=== PATIENT | male | born 1990 | race Caucasian/White ===

== ENCOUNTER 2016-12-21 20:17 | Emergency (ER) | payer BC, OTHER ==
[2016-12-21 20:29] VITALS: BP 151/79; PULSE 98; TEMP 98.5; BMI 26.6
--- NOTE | 2016-12-21 21:25 | PDOC ---
History of Present Illness - History of Present Illness Initial Comments: 12/21/16 21:26 26 y/o M with no PMHx presents to the ED with an abscess on his right ear for two days. Patient reports associated pain at the site. He does not wear earrings. He has no other complaints. Denies fever, chills. PAST MEDICAL HISTORY: no significant history PAST SURGICAL HISTORY: no significant history FAMILY HISTORY: no pertinent history SOCIAL HISTORY: Pt lives with family and is employed. MEDICATIONS: reviewed ALLERGIES: As per nursing notes Review of Systems: General: No fevers or chills, no weakness, no weight loss HEENT: (+) right ear abscess and pain. No change in vision. No sore throat. CardioVascular: No chest pain or shortness of breath Respiratory: No cough, or wheezing. Gastrointestinal: no nausea, vomiting, diarrhea or constipation, No rectal bleeding Genitourinary: No dysuria, hematuria, or frequency Musculoskeletal: No joint or muscle pain or swelling Neurologic: No headache, vertigo, dizziness or loss of consciousness Psychiatric: No depression Skin: No rashes or easy bruising Endocrine: No increased thirst or abnormal weight change Allergic: No skin or latex allergy All other systems reviewed and normal Physical Exam: GENERAL: The patient is awake, alert, and fully oriented, in no acute distress. HEAD: Normal with no signs of trauma. EYES: Pupils equal, round and reactive to light, extraocular movements intact, sclera anicteric, conjunctiva clear. ENT: Right ear there is a swollen, red indurated area just below the ear lobe. Questionable small palpable collection. Right submandibular lymphadenopathy. EXTREMITIES: Normal range of motion, no edema. NEUROLOGICAL: Normal speech, normal gait. PSYCH: Normal mood, normal affect. SKIN: Warm, Dry, normal turgor, no rashes or lesions noted. <Vicky García - Last Filed: 12/21/16 21:26> - General History Source: Patient Exam Limitations: No Limitations - History of Present Illness Initial Comments: 12/21/16 23:33 A portion of this note was documented by scribe services under my direction. I have reviewed the details of the note, within reason, and agree with the documentation. The case summary and management plan written by me. Procedure note incision and drainage abscess just below her right ear Abscess wasn't cleaned with alcohol and anesthetized with 1% lidocaine no epinephrine A needle was placed into the abscess cavity with return of pus A #11 blade was used to incise the abscess cavity with a large amount of pus expressed from the abscess cavity, and loculations were broken up Sterile packing was placed in the cavity and a Band-Aid was placed over the incision. Patient tolerated procedure well Assessment and plan: This is a 26-year-old male comes in complaining of an abscess just below his right ear. The abscess was incised and drained and patient was told to start hot soaks tomorrow after removing the packing. Patient has a primary care doctor he can follow-up with. <Praneeth Cheney I - Last Filed: 12/21/16 23:35> - General Chief Complaint: Abscess Boil Stated Complaint: BOIL RT EAR AREA Time Seen by Provider: 12/21/16 20:26 Past History <Vicky García - Last Filed: 12/21/16 21:26> - Past Medical History Asthma: Yes Other medical history: SHINGLES - Immunization History Immunization Up to Date: Yes - Suicide/Smoking/Psychosocial Hx Smoking Status: Yes Smoking History: Current every day smoker Have you smoked in the past 12 months: Yes Number of Cigarettes Smoked Daily: 10 Information on smoking cessation initiated: Yes 'Breaking Loose' booklet given: 12/21/16 Hx Alcohol Use: Yes (WEEKLY) Substance Use Type: None <Praneeth Cheney I - Last Filed: 12/21/16 23:35> - Past Medical History Allergies/Adverse Reactions: Allergies Allergy/AdvReac Type Severity Reaction Status Date / Time No Known Drug Allergies Allergy Verified 12/21/16 20:30 shellfish derived Allergy Rash Verified 06/19/12 18:03 Home Medications: Ambulatory Orders Albuterol Sulfate Inhaler - [Ventolin Hfa Inhaler -] 1 puff IH PRN PRN 12/21/16 *Physical Exam - Vital Signs Last Vital Signs Temp Pulse Resp BP Pulse Ox 98.5 F 98 H 16 151/79 100 12/21/16 20:26 12/21/16 20:26 12/21/16 20:26 12/21/16 20:26 12/21/16 20:26 <Vicky García - Last Filed: 12/21/16 21:26> - Vital Signs Last Vital Signs Temp Pulse Resp BP Pulse Ox 98.5 F 98 H 16 151/79 100 12/21/16 20:26 12/21/16 20:26 12/21/16 20:26 12/21/16 20:26 12/21/16 20:26 <Praneeth Cheney I - Last Filed: 12/21/16 23:35> *DC/Admit/Observation/Transfer - Attestations Scribe Attestion: 12/21/16 21:27 Documentation prepared by Vicky García, acting as medical stenographer for Praneeth Cheney MD. <Vicky García - Last Filed: 12/21/16 21:26> - Discharge Dispostion Admit: No <Praneeth Cheney I - Last Filed: 12/21/16 23:35> Diagnosis at time of Disposition: Facial abscess - Discharge Dispostion Disposition: HOME Condition at time of disposition: Stable - Patient Instructions Additional Instructions: Remove the packing and Band-Aid from the ear tomorrow evening. Start hot soaks as described by the doctor. Tylenol or Motrin as needed for pain. Return to the emergency department immediately with ANY new, persistent or worsening symptoms. Continue any medications as previously prescribed by your physician. You should follow up with your primary doctor as soon as possible regarding today's emergency department visit. . Please make sure your doctor reviews the results of your emergency evaluation. Thank you for coming to the Emergency Department today for your care. It was a pleasure to see you today. Please note that your evaluation is INCOMPLETE until you follow-up with your doctor.
== END 2016-12-21 21:33 | disposition home or self-care (01) ==
LOC: FER 20:17
PROC: 0H92XZZ Drainage of Right Ear Skin, External Approach (ICD-10-PCS; principal; 2016-12-21)
DX: H60.01 Abscess of right external ear (principal); J45.909 Unspecified asthma, uncomplicated; F17.210 Nicotine dependence, cigarettes, uncomplicated
CPT/HCPCS: 87070; 87205; 99281-25